=== PATIENT | male | born 1985 | race Hispanic/Latino ===

== ENCOUNTER 2017-12-25 12:19 | Inpatient (IN) | payer MEDICAID ==
[2017-12-25 13:28] LABS: BASO # 0.1 K/uL (0.0-0.2); EOS # 0.3 K/uL (0.0-0.7); HEMOGLOBIN 14.1 g/dL (12.0-18.0); LYMPH # 2.3 K/uL (1.0-4.3); LYMPH % 36.9 % (20.0-40.0); MEAN CELL VOLUME 80.7 fL (80.0-94.0); MEAN CORPUSCULAR HGB CONC 34.6 g/dL (33.0-37.0); MEAN PLATELET VOLUME 6.9 fL (7.2-11.7); MONO # 0.5 K/uL (0.0-0.8); NEUT # 3.1 K/uL (1.8-7.0); NEUT % 49.1 % (50.0-75.0); NRBC % 0.1 % (0.0-2.0); RBC 5.04 Mil/uL (4.40-5.90); RED CELL DISTRIBUTION WIDTH 13.6 % (11.5-14.5); WHITE BLOOD COUNT 6.3 K/uL (4.8-10.8)
[2017-12-25 13:42] LABS: SQUAMOUS EPITHIAL < 1 /hpf (0-5); URINE BILIRUBIN NEGATIVE (NEGATIVE); URINE BLOOD NEGATIVE (NEGATIVE); URINE CLARITY Hazy (Clear); URINE COLOR Yellow (YELLOW); URINE GLUCOSE (UA) NORMAL (Normal); URINE LEUKOCYTE ESTERASE NEG Leu/uL (Negative); URINE PROTEIN NEGATIVE (NEGATIVE); URINE UROBILINOGEN NORMAL mg/dL (0.2-1.0)
[2017-12-25 13:54] LABS: ALB/GLOB RATIO 1.4 (1.0-2.1); ALBUMIN 4.4 g/dL (3.5-5.0); ALT/SGPT 26 U/L (21-72); AST/SGOT 27 U/L (17-59); BLOOD UREA NITROGEN 16 mg/dL (9-20); CALCIUM 9.3 mg/dl (8.6-10.4); GFR AFRICAN-AMERICAN > 60; GFR NON-AFRICAN AMERICAN > 60
[2017-12-25 14:28] LABS: BARBITURATES, UR NEGATIVE (NEGATIVE); BENZODIAZEPINES, UR NEGATIVE (NEGATIVE); PHENCYCLIDINE, UR NEGATIVE (NEGATIVE)
[2017-12-25 14:29] LABS: OPIATES, UR POSITIVE (NEGATIVE)
--- NOTE | 2017-12-25 14:48 | C.PDOC ---
History Of Present Illness 32-year-old male, presents to the emergency department, prescreened for detox from Heroin. Patients last use was last night. he denies any other complaints at this time. Time Seen by Provider: 12/25/17 12:47 Chief Complaint (Nursing): Substance Abuse History Per: Patient History/Exam Limitations: no limitations Current Symptoms Are (Timing): Still Present Past Medical History Reviewed: Historical Data, Nursing Documentation, Vital Signs Vital Signs: Last Vital Signs Temp 98.4 F 12/25/17 12:43 Pulse 86 12/25/17 12:43 Resp 18 12/25/17 12:43 BP 143/86 12/25/17 12:43 Pulse Ox 95 12/25/17 14:48 - Medical History PMH: Denies: Diabetes, Hepatitis, HIV, HTN, Seizures, Sexually Transmitted Disease - [facility] DRUG DETOXIFICATION (08/31/14) Family History: States: No Known Family Hx - Social History Hx Tobacco Use: No Hx Alcohol Use: No Hx Substance Use: Yes (heroin) - Immunization History Hx Tetanus Toxoid Vaccination: No Hx Influenza Vaccination: No Hx Pneumococcal Vaccination: No Review Of Systems Constitutional: Negative for: Fever, Chills Cardiovascular: Negative for: Chest Pain, Palpitations Respiratory: Negative for: Shortness of Breath Gastrointestinal: Negative for: Nausea, Vomiting Musculoskeletal: Negative for: Back Pain Skin: Negative for: Rash Neurological: Negative for: Weakness, Numbness Psych: Negative for: Suicidal ideation, Withdrawal Physical Exam - Physical Exam Appears: Non-toxic, No Acute Distress Skin: Normal Color, Warm, Dry, No Rash Head: Atraumatic, Normacephalic Eye(s): bilateral: Normal Inspection Nose: Normal Oral Mucosa: Moist Lips: Normal Appearing Neck: Normal ROM Cardiovascular: Rhythm Regular Respiratory: Normal Breath Sounds, No Accessory Muscle Use Gastrointestinal/Abdominal: Soft, No Tenderness Back: Normal Inspection Extremity: Normal ROM, No Deformity, No Swelling Neurological/Psych: Oriented x3, Normal Speech ED Course And Treatment - Laboratory Results Result Diagrams: 12/25/17 13:14 12/25/17 13:14 O2 Sat by Pulse Oximetry: 95 (RA) Pulse Ox Interpretation: Normal Disposition Discussed With : Shaina Arellano Doctor Will See Patient In The: Hospital Counseled Patient/Family Regarding: Studies Performed, Diagnosis - Disposition Disposition Time: 15:18 Condition: FAIR Forms: [facility] (Jamaican) - Clinical Impression Clinical Impression: Drug abuse - Scribe Statement The provider has reviewed the documentation as recorded by the Scribe (Amy Balderas) All medical record entries made by the Scribe were at my direction and personally dictated by me. I have reviewed the chart and agree that the record accurately reflects my personal performance of the history, physical exam, medical decision making, and the department course for this patient. I have also personally directed, reviewed, and agree with the discharge instructions and disposition.
[2017-12-25] MEDS ORDERED: Aluminum Hydroxide/Magnesium Hydroxide Susp (30 mL) PO PRN (15:20)
--- NOTE | 2017-12-25 15:45 | PCM.BM ---
<Laquita Blanca - Last Filed: 12/25/17 15:44> Treatment Plan Problems - Problems identified on initial assessmt Potential for opiate withdrawal Date Initiated: 12/25/17 Time Initiated: 15:44 Assessment reference: NA Status: Active Treatment assets and liabiliti Patient Assests: ADL independent, physically healthy, negotiates basic needs, cognitively intact Patient Liabilities: substance abuse (opiates) - Milieu Protocol Maintain good personal hygiene: every shift Encourage regular showers, every shift Remind patient to perform daily oral care, every shift Assist patient to perform ADL's Conduct patient checks and document Observation sheet: Q15 minutes Maintain personal safety: daily Educate patient to report safety concerns to staff, daily Monitor environment for contraband/sharps Medication safety: Monitor for expected outcome, potential side effects: daily, Assess barriers to learning: daily, Assess readiness for medication education: daily <Shaina Arellano - Last Filed: 12/26/17 12:46> - Diagnosis (1) Opiate dependence Status: Acute Interventions: * Assess 7x/week regarding severity of withdrawal * Educate regarding risks, benefits, side effects and alternatives of medications * Use Motivational Interviewing for abstinence * Use CBT for relapse prevention * Medication management for withdrawal symptoms * Encourage medication assisted treatment * <Latha Barnard - Last Filed: 12/27/17 13:44> Family Contact Family involvement: Family/SO is involved Family contact: Patient agrees to contact - Goals for Treatment Patient goals for treatment: Complete detox and transition to the Viv[facility] maintenance program at [facility]. Discharge/Continuing Care - Education Needs Education Needs: Patient Medication, Patient Diagnosis/Disease Process, Patient Coping Skills, Patient Anger Management skills, Patient Placement options, Patient Community resources, Significant Other Medication, Significant Other Diagnosis/Disease Process, Significant Other Coping Skills, Significant Other Placement options, Significant Other Community resources - Discharge Discharge Criteria: No longer exhibiting s/s of withdrawal, Reduction of target symptoms Discharge to:: Home, With Family - Treatment Team Participation Patient/Family/SO Statement: 12/27/17 13:44 "[facility] I've had success with that in the past..." Discussed with Family/SO: No Was Patient/Family/SO present at Treatment Team Meeting: Yes
[2017-12-26] MEDS ORDERED: Buprenorphine Hydrochloride 2 mg SL ONE ×2 (08:04→09:15)
--- NOTE | 2017-12-26 12:24 | PCM.PSYCH ---
Initial Psychiatric Evaluation - Initial Psychiatric Evaluation Type of Admission: Voluntary Legal Status: Capacity Chief Complaint (in patient's own words): "I couldn't stop on my own" History of Present Illness and Precipitating Events: The patient is seen, chart reviewed and case discussed. Neck signed this is a 32 -year-old male, single with 3 children aged 3, 7 and 12, who are with his girlfriends now. The patient is living with his mother for now. 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 The patient is using 20 bags of heroin intranasally for the last 6 years. He had some success with vivitrol shot, which helped him stay abstinent for 8 and then 13 months in the past. However, he couldn't get it again and he relapsed. He states that he couldn't stop on his own, and he doesn't have a safe environment to do an outpatient treatment to stop heroin. He has been to detox 5 times but never to rehabilitation. He goes to sometimes. No Suboxone treatment. No methadone. He denies all other drugs and alcohol but sometimes uses cigarettes. No psych symptoms. Past psych history: Denies Medical history: Denies Family psych history: Denies Current Medications: Active Medications Generic Name Dose Route Start Last Admin Trade Name Freq PRN Reason Stop Dose Admin Al Hydrox/Mg Hydrox/Simethicone 30 ml 12/25/17 15:20 Maalox 30 Ml PO TID PRN Indigestion / Heartburn Buprenorphine HCl 8 mg 12/27/17 10:00 Subutex SL 12/31/17 09:59 .TAPER DEON Taper Clonidine HCl 0.1 mg 12/25/17 15:20 Catapres PO Q8 PRN COWS Score More or Equal to 5 Hydroxyzine HCl 50 mg 12/25/17 15:20 Atarax PO Q6H PRN Anxiety Ibuprofen 600 mg 12/25/17 15:20 Motrin Tab PO Q6H PRN Pain, moderate (4-7) Loperamide HCl 2 mg 12/25/17 15:20 Imodium PO Q8 PRN Diarrhea Ondansetron HCl 4 mg 12/25/17 15:20 12/26/17 07:52 Zofran Tab PO 4 mg Q8 PRN Administration Nausea/Vomiting Trazodone HCl 100 mg 12/25/17 15:20 Desyrel PO HS PRN Insomnia Past Psychiatric History - Past Psychiatric History Previous Treatment History: None Pertinent Medical Hx (Current Medical&Sleep Prob, Allergies): Allergies Allergy/AdvReac Type Severity Reaction Status Date / Time No Known Allergies Allergy Verified 12/25/17 12:45 No Known Home Med 12/25/17 Review of Systems - Neurological Neurological: UNREMARKABLE - Psychiatric Psychiatric: Abnormal Sleep Pattern, Anxiety, Difficulty Concentrating, Irritability. absent: Hallucinations, Homicidal Ideation, Suicidal Ideation Mental Status Examination - Personal Presentation Personal Presentation: Looks stated age - Affect Affect: Constricted - Motor Activity Motor Activity: Calm - Reliability in Providing Information Reliability in Providing Information: Good - Speech Speech: Organized - Mood Mood: Anxious - Formal Thought Process Formal Thought Process: No Impairment - Cognitive Functions Orientation: Person, Place, Situation, Time Sensorium: Alert Attention/Concentration: Attentive Estimate of Intelligence: Average Judgement: Intact, as evidence by: Insight regarding need for hospitalization Memory: Recent intact, as evidence by: Ability to recall events of the day, Remote intact, as evidenced by: Abilit to recall sig. life events - Risk Risk: Diminished functioning - Strength & Assets Inventory Strength & Assets Inventory: Cooperative - Limitations Limitations: Other DSM 5 DX - DSM 5 DSM 5 Diagnosis: Opioid withdrawal Opioid use disorder, severe Tobacco use disorder, mild - Recommended/Plan of Treatment Treatment Recommendations and Plan of Treatment: Taper with Subutex Gabapentin for augmentation if needed As needed medications All risks, benefits and alternatives of the meds discussed, and the pt agreed and understood. Attend groups and activities Supportive therapy and psychoeducation NC for abstinence CBT for relapse prevention Encourage MAT Refer to rehab or IOP, and self-help groups Smoking cessation with NC Nicotine patch if needed 34 min Projected ELOS: 4 days Prognosis: Good with treatment Discharge Plan and Discharge Criteria: No withdrawal symptoms is the criteria and completion of detox Refer to vivitrol treatment at [facility]. - Smoking Cessation Smoking Cessation Initiated: Yes
[2017-12-27] MEDS: Buprenorphine Hydrochloride 2 mg SL SCH (09:52)
--- NOTE | 2017-12-27 14:42 | PCM.PYCHPN ---
Psychiatric Progress Note - Psychiatric Progress Note Patient seen today, length of contact: 16 min Patient Chief Complaint: "I'm better" Problems Identified/Issues Discussed: The pt is seen, chart reviewed, case discussed with staff. Support and psychoeducation given, CBT and ND used briefly No new symptoms reported, improving slowly and needs more time No SEs from medications, risks discussed. After care discussed Medication Change: Yes (detox changes daily) Medical Record Reviewed: Yes Mental Status Examination - Cognitive Function Orientation: Person, Place, Situation, Time Memory: Intact Attention: WNL Concentration: WNL Association: WNL Fund of Knowledge: WNL - Mood Mood: Anxious - Affect Affect: Constricted - Speech Speech: Appropriate - Formal Thought Process Formal Thought Process: No Impairment - Suicidal Ideation Suicidal Ideation: No - Homicidal Ideation Homicidal Ideation: No Goal/Treatment Plan - Goal/Treatment Plan Need for Continued Stay: Discharge may exacerbated symptoms, Severe functional impairment Progress Toward Problem(s) and Goals/Treatment Plan: Taper with Subutex Gabapentin for augmentation if needed As needed medications All risks, benefits and alternatives of the meds discussed, and the pt agreed and understood. Attend groups and activities Supportive therapy and psychoeducation ND for abstinence CBT for relapse prevention Encourage MAT Refer to rehab or IOP, and self-help groups Smoking cessation with ND Nicotine patch if needed Estimated Date of D/C: 12/30/17
[2017-12-27 19:03] VITALS: O2SAT 99
[2017-12-28 08:53] VITALS: BP 116/78; PULSE 80; RESP 20; TEMP 97.7
--- NOTE | 2017-12-28 10:04 | PCM.PYCHDC ---
Mental Status Examination - Mental Status Examination Orientation: Person, Place, Situation, Time Memory: Intact Mood: Neutral Affect: Broad Attention: WNL Concentration: WNL Association: WNL Fund of Knowledge: WNL Formal Thought Process: No Impairment Description of patient's judgement and insight: good/good Psychotic Thoughts and Behaviors: denied Suicidal Ideation: No Current Homicidal Ideation?: No Plan: denied Discharge Summary - Discharge Note Reason for Hospitalization: this is a 32-year-old male, single with 3 children aged 3, 7 and 12, who are with his girlfriends now. The patient is living with his mother for now. 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 The patient is using 20 bags of heroin intranasally for the last 6 years. He had some success with vivitrol shot, which helped him stay abstinent for 8 and then 13 months in the past. However, he couldn't get it again and he relapsed. He states that he couldn't stop on his own, and he doesn't have a safe environment to do an outpatient treatment to stop heroin. He has been to detox 5 times but never to rehabilitation. He goes to sometimes. No Suboxone treatment. No methadone. He denies all other drugs and alcohol but sometimes uses cigarettes. No psych symptoms. Past psych history: Denies Medical history: Denies Family psych history: Denies Consultations:: List each consultation separately and include: 1. Reason for request. 2. Findings. 3. Follow-up Summary of Hospital Course include:: 1. Description of specific treatment plan utilized for patients during their course of treatmen. 2. Summarize the time- course for resolution of acute symptoms and/or regressed behaviors. 3. Describe issues identified and worked on during hospitalization. 4. Describe medication utilized. 5. Describe medical problems identified and treated. 6. Reassessment of suicide risk Summary of Hospital Course: The pt was admitted and started on treatment with psychotherapy, support, psychoeducation and medications. [place] and CBT used. The pt attended some groups and activities, as well as milieu therapy. All the risks and benefits of medications were discussed and the patient understood and agreed. The pt requested earlier discharge. This MD offered extra dosage of medication if his withdrawal are not in controlled, but pt declined and stated that he does not had any withdrawal symptoms. The pt stated that he understand importance of completion of treatment. However, he needs to be d/c because he believes that he his withdrawal symptoms are over. He denied craving for drugs. Pt was educated about the early relapse on drugs 2/2 to drugs use. Pt was also educated the different consequences due to noncompliance issues as well as not completing the detox treatment. Pt verbalized understanding and he stated that he will return to nearest ER in case of withdrawal symptoms. Diagnosis: Opioid withdrawal Opioid use disorder, severe Tobacco use disorder, mild - Final Diagnosis (DSM 5) Condition upon Discharge: FAIR Disposition: AGAINST MEDICAL ADVICE Follow-up Treatment Plan: Continue below medications after discharge. F/U with [place] [facility] Follow after care plan as discussed. Use relapse prevention copying skills Return to ER or call 911 if suicidal, homicidal or symptoms relapse. Stay away from stress, alcohol and drugs. See primary doctor once a year. Time spend 24 minutes - Smoking Cessation Smoking Cessation Medication prescribed: Yes - Antipsychotic Medications Pt discharged on 2 or more routine antipsychotic medications: No
[2017-12-28] MEDS: Buprenorphine Hydrochloride 2 mg SL SCH (10:13)
== END 2017-12-28 10:15 | disposition left against medical advice (07) | DRG 743 ==
LOC: C.ER 12:19 → C.7D 15:17
PROVIDERS: ADMIT Psychiatry & Neurology Psychiatry; ATTEND Psychiatry & Neurology Psychiatry
PROC: HZ2ZZZZ Detoxification Services for Substance Abuse Treatment (ICD-10-PCS; principal; 2017-12-25)
PROC: HZ59ZZZ Individual Psychotherapy for Substance Abuse Treatment, Supportive (ICD-10-PCS; 2017-12-25)
PROC: HZ46ZZZ Group Counseling for Substance Abuse Treatment, Psychoeducation (ICD-10-PCS; 2017-12-25)
PROC: HZ90ZZZ Pharmacotherapy for Substance Abuse Treatment, Nicotine Replacement (ICD-10-PCS; 2017-12-25)
DX: F11.23 Opioid dependence with withdrawal (principal); F17.210 Nicotine dependence, cigarettes, uncomplicated